=== PATIENT | male | born 1985 | race Caucasian/White ===

== ENCOUNTER 2017-01-21 21:16 | Emergency (ER) | payer SELFPAY ==
[~2017-01-21] VITALS: Ht 172.7 cm; Wt 77.1 kg
--- NOTE | 2017-01-21 21:58 | ED EENT ---
History of Present Illness General Chief Complaint: Dental Problems/Pain Stated Complaint: DENTAL PAIN Nursing Triage Note: dental pain Source: patient Exam Limitations: no limitations History of Present Illness Time seen by provider: 21:57 Allergies and Home Medications Allergies Coded Allergies: No Known Drug Allergies (Unverified , 01/21/17) Home Medications No Active Prescriptions or Reported Meds Past Houepfw-Epfept-Tdudes Hx Patient Social History Alcohol Use: Denies Use Recreational Drug Use: No Smoking Status: Never a Smoker 2nd Hand Smoke Exposure: No Recent Foreign Travel: No Contact w/Someone Who Travel: No Recent Infectious Disease Expo: No Recent Hopitalizations: No Immunizations Up To Date Tetanus Booster (TDap): Unknown PED Vaccines UTD: Yes Seasonal Allergies Seasonal Allergies: No Surgeries History of Surgeries: No Respiratory History of Respiratory Disorde: No Cardiovascular History of Cardiac Disorders: No Neurological History of Neurological Disord: No Genitourinary History of Genitourinary Disor: No Gastrointestinal History of Gastrointestinal Di: No Musculoskeletal History of Musculoskeletal Dis: No Endocrine History of Endocrine Disorders: No HEENT History of HEENT Disorders: No Cancer History of Cancer: No Psychosocial History of Psychiatric Problem: No Integumentary History of Skin or Integumenta: No Blood Transfusions History of Blood Disorders: No Physical Exam Vital Signs Vital Sign - Last 12Hours 01/21/17 21:33 Temp 98.5 Pulse 92 Resp 18 B/P (MAP) 148/92 Pulse Ox 98 O2 Delivery Room Air Progress/Results/Core Measures Results/Orders My Orders Orders - TIFFANIE VILLEDA Hydrocodone/Apap 5/325 Tablet (Lortab 5 (01/21/17 22:13) Ceftriaxone Injection (Rocephin Injectio (01/21/17 22:15) Lidocaine 1% Injection (Xylocaine 1% Inj (01/21/17 22:15) Lidocaine 2% Viscous 15 Ml (Xylocaine Vi (01/21/17 22:15) Vital Signs/I&O Vital Sign - Last 12Hours 01/21/17 21:33 Temp 98.5 Pulse 92 Resp 18 B/P (MAP) 148/92 Pulse Ox 98 O2 Delivery Room Air Blood Pressure Mean: 110 Departure Impression Impression: Primary Impression: Dental infection Disposition: 01 HOME, SELF-CARE Condition: Improved Departure-Patient Inst. Decision time for Depature: 22:32 Referrals: NO,LOCAL PHYSICIAN (PCP/Family) Primary Care Physician Add. Discharge Instructions: All discharge instructions reviewed with patient and/or family. Voiced understanding. Medications as instructed. Tylenol extra strength over-the- counter as directed for pain. Ibuprofen 800 mg by mouth every 8 hours as needed for pain. Drink plenty of fluids. Place 1 gauze pad between the affected teeth and bite down gently for 5-10 minutes. Remove the gauze pad. Do not possibly or swallowed the gauze pads due to risk of choking and . Follow-up with the dentist of your choice this week for dental repair and recheck. Return to the emergency department for worsened pain, fever, swelling , vomiting, difficulty swallowing,difficulty breathing, or any other concerns. Scripts Cephalexin (Cephalexin) 500 Mg Capsule 500 MG PO TID, #21 CAP 0 Refills Prov: TIFFANIE VILLEDA 01/21/17 Tramadol HCl (Tramadol HCl) 50 Mg Tablet 50 MG PO Q4H Y for PAIN, #14 TAB 0 Refills Prov: TIFFANIE VILLEDA 01/21/17 Work/School Note: Local Medical Staff Listing TIFFANIE VILLEDA Jan 21, 2017 21:57
[2017-01-21] MEDS ORDERED: HYDROcodone/APAP 5 MG/325 MG (LORTAB) TAB PO STA (22:13)
[2017-01-21] MEDS ORDERED: LIDOCAINE 1% INJ 20 ML (XYLOCAINE) VIAL INJ ONE (22:15)
[2017-01-21] MEDS ORDERED: LIDOCAINE 2% VISCOUS 15 ML UDC PO ONE (22:15)
[2017-01-21] MEDS ORDERED: cefTRIAXone 1 GM (ROCEPHIN) VIAL IM ONE (22:15)
[2017-01-21] MEDS ORDERED: CEPH500C PO (22:34)
[2017-01-21] MEDS ORDERED: TRAM50TA2 PO (22:34)
[2017-01-21 22:47] VITALS: BP 148/92
== END 2017-01-21 22:45 | disposition home or self-care (01) ==
LOC: EDUNIT# 21:16 → ER 21:19
DX: K04.7 Periapical abscess without sinus (principal)
CPT/HCPCS: 96372; 99284